=== PATIENT | female | born 1970 | race African-American/Black ===

== ENCOUNTER → 2017-04-23 | Outpatient (CLI) | payer OTHER ==
[~2017-04-23] MED LIST: CENTRUM COMPLE1 EACH; CENTRUM SILVER1 EAC4 PO; FIORINAL 50-321 EACH PO; LIPITOR 20 MG T20 M1 PO; MINOCIN100 MG PO; WELLBUTRIN 75 M75 M1 PO; WELLBUTRIN XL150 MG PO
== END ==
LOC: M.RAD 04-17 09:20
DX: Z12.31 Encounter for screening mammogram for malignant neoplasm of breast (principal)

== ENCOUNTER 2017-07-12 09:48 | Emergency (ER) | payer OTHER ==
[~2017-07-12] VITALS: Ht 162.6 cm; Wt 78.9 kg
[~2017-07-12 09:48] MED LIST changes: -LIPITOR 20 MG T20 M1 PO; -MINOCIN100 MG PO; -WELLBUTRIN XL150 MG PO
[2017-07-12] MEDS ORDERED: LIPITOR 20 MG T20 M1 PO (10:04)
[2017-07-12] MEDS ORDERED: MINOCIN100 MG PO (10:05)
[2017-07-12] MEDS ORDERED: WELLBUTRIN XL150 MG PO (10:05)
[2017-07-12 10:24] LABS: ABSOLUTE LYMPHOCYTES 1.2 thou/uL (0.8-5.3); ABSOLUTE MONOCYTES 0.3 thou/uL (0.0-1.2); ABSOLUTE NEUTROPHILS 2.4 thou/uL (1.6-8.1); BASOPHILS 1.1 %; EOSINOPHILS 0.5 %; HEMOGLOBIN 13.8 gm/dL (12.0-15.0); LYMPHOCYTES 30.2 %; MCH 28.7 pg (26.0-34.0); MCHC 33.7 g/dL (28.0-37.0); MCV 85.3 fL (80.0-100.0); MONOCYTES 8.4 %; NUCLEATED RBCS 0 /100WBC; PLATELET COUNT* 153 thou/uL (150-400); POLYS 59.8 %; RDW-CV 12.6 % (10.5-14.5)
[2017-07-12 10:34] LABS: INR 1.1; PROTIME 10.5 Seconds (9.20-11.50)
[2017-07-12 10:38] LABS: ANION GAP 9 mmol/L (7-16); BUN 10 mg/dL (7-18); CALCIUM 9.3 mg/dL (8.5-10.1); CHLORIDE 103 mmol/L (98-107); CO2 29 mmol/L (21-32); CREATININE 0.9 mg/dL (0.6-1.3); GLUCOSE 96 mg/dL (70-99); POTASSIUM 4.3 mmol/L (3.5-5.1); SODIUM 141 mmol/L (136-145)
[2017-07-12 10:48] LABS: ALBUMIN 4.2 g/dL (3.4-5.0); ALKALINE PHOSPHATASE 56 U/L (46-116); SGOT 19 U/L (15-37); SGPT 25 U/L (30-65); TOTAL BILIRUBIN 0.5 mg/dL (<0.1-1.0); TOTAL PROTEIN 7.7 g/dL (6.4-8.2); TROPONIN-I LEVEL <0.06 ng/mL (<0.06)
[2017-07-12 11:17] VITALS: BP 158/94
--- NOTE | 2017-07-13 14:33 | EKG ---
[place] [address] ELECTROCARDIOGRAM REPORT Name: HOPECRISTIANE Room: [facility]#: [id number] Admission: 07/12/17 Attend Phys: Discharge: 07/12/17 Date of : 74 Report #: [id number] THIS REPORT FOR: //name// [facility] ED Test Date: 2017-07-12 Test Time: 10:24:53 Pat Name: CRISTIANE HOPE Department: Room: Gender: F Camera Person: ZOHREH Kitchen : 1970 Requested By: Tommy Elizabeth Order Number: [id number] MD: Martín Lott Measurements Intervals [place] Rate: 72 P: 40 DE: 148 QRS: 29 QRSD: 79 T: 46 QT: 371 QTc: 406 Interpretive Statements Sinus rhythm Abnormal R-wave progression, early transition Compared to ECG 03/18/2014 19:11:25 T-wave abnormality no longer present Electronically Signed On 07-13-2017 14:33:08 CDT by Martín Lott [email or web address] <ELECTRONICALLY SIGNED> By: Martín Lott MD, [facility] 07/13/17 1433 1024 1024 Martín Lott MD, FACC /EPI
== END 2017-07-12 11:18 | disposition home or self-care (01) ==
LOC: M.ERS 09:48
PROVIDERS: Family Medicine
DX: R20.2 Paresthesia of skin (principal); G43.909 Migraine, unspecified, not intractable, without status migrainosus; E78.5 Hyperlipidemia, unspecified